=== PATIENT | female | born 1970 | race Caucasian/White ===

== ENCOUNTER → 2018-03-31 | Outpatient (CLI) | payer OTHER ==
[~2018-03-31] MED LIST: CHLORTHALIDONE25 MG PO; GENTAK5 ML OP; LOSARTAN-HCTZ1 EAC2; NAPHCON-A EYE D15 ML OP; TIROSINT112 MCG PO
== END ==
LOC: M.RAD 03-29 09:42
DX: N63.10 Unspecified lump in the right breast, unspecified quadrant (principal); R92.2 Inconclusive mammogram; G43.909 Migraine, unspecified, not intractable, without status migrainosus; I10 Essential (primary) hypertension; E03.9 Hypothyroidism, unspecified; J45.909 Unspecified asthma, uncomplicated

== ENCOUNTER → 2020-08-30 | Outpatient (CLI) | payer OTHER | LOC: M.RAD 11:23 | PROVIDERS: ATTEND Internal Medicine | DX: Z12.31 Encounter for screening mammogram for malignant neoplasm of breast (principal) ==